=== PATIENT | female | born 1995 | race Two or more races ===

== ENCOUNTER 2017-08-08 12:42 | Emergency (ER) | payer SELFPAY ==
[~2017-08-08] VITALS: Ht 152.4 cm; Wt 72.6 kg
[2017-08-08 13:17] LABS: Urine Bilirubin Negative (Negative); Urine Blood Negative /uL (Negative); Urine Color Yellow (Yellow); Urine Glucose Normal (Normal); Urine Ketone 2+ (Negative); Urine Mucus FEW (None Seen); Urine Nitrite Negative (Negative); Urine RBC 2 /hpf (0 - 4); Urine Squamous Epithelial Cell MOD /hpf (<5); Urine Urobilinogen Normal (Negative)
[2017-08-08 13:18] LABS: Basophils # (auto) 0 uL; Basophils % (auto) 0.2 % (0.0-2.0); Eosinophils # (auto) 0 uL; Eosinophils % (auto) 0.2 % (0.0-7.0); Hematocrit 45.1 % (36.0-46.0); Lymphocytes # (auto) 2.2 uL; Mean Corpuscular Hgb Conc. 33.4 g/dL (32.0-36.0); Mean Corpuscular Volume 92.7 fL (80.0-100.0); Mean Platelet Volume 7.5 fL (6.9-10.8); Monocytes % (auto) 6.9 % (0.0-12.0); Neutrophils # (auto) 11.4 uL; Neutrophils % (auto) 77.7 % (37.0-80.0); Nucleated Red Blood Cells % 0.1 %; Platelet Count (auto) 345 10^3/uL (140-450); Red Cell Distribution Width 13.6 % (11.8-14.3); White Blood Cell 14.7 10^3/uL (4.4-10.8)
[2017-08-08 13:37] LABS: Albumin 4.1 g/dL (3.4-5.0); BUN/Creatinine Ratio 10.5; Bilirubin, Total 0.6 mg/dL (0.2-1.0); Calcium 9.1 mg/dL (8.5-10.1); Total Protein 8.4 g/dL (6.4-8.2)
[2017-08-08 16:19] VITALS: BP 128/74
== END 2017-08-08 16:18 | disposition home or self-care (01) ==
LOC: ER 12:42
DX: R07.89 Other chest pain (principal); Z88.1 Allergy status to other antibiotic agents
CPT/HCPCS: 36415; 80053; 80307; 81001; 85025; 93005